=== PATIENT | female | born 1930 | race Caucasian/White ===

== ENCOUNTER → 2018-02-04 | Outpatient (CLI) | payer MEDICARE, OTHER ==
[~2018-02-04] MED LIST: REGADENOSON 0.4 MG/5 ML SYRINGE ONE
== END | disposition home or self-care (01) ==
LOC: CVU 07:13
PROVIDERS: ATTEND Internal Medicine Cardiovascular Disease
DX: I08.0 Rheumatic disorders of both mitral and aortic valves (principal); I10 Essential (primary) hypertension
CPT/HCPCS: 78452; 93017; 93306; A9502; J2785

== ENCOUNTER → 2018-02-13 | Outpatient (CLI) | payer MEDICARE, OTHER ==
[2018-02-13 15:50] LABS: ANION GAP 9 mmol/L (5-15); CALCIUM 9.1 mg/dL (8.5-10.1); CHLORIDE 107 mmol/L (98-107); CREATININE 0.89 mg/dL (0.55-1.02)
== END | disposition home or self-care (01) ==
LOC: LAB 14:54
PROVIDERS: ATTEND Internal Medicine Cardiovascular Disease
DX: E78.1 Pure hyperglyceridemia (principal)
CPT/HCPCS: 36415; 80048

== ENCOUNTER → 2020-07-20 | Outpatient (CLI) | payer MEDICARE, OTHER | END | disposition home or self-care (01) | LOC: CFH 07:33 | PROVIDERS: ATTEND Internal Medicine Cardiovascular Disease | DX: I08.3 Combined rheumatic disorders of mitral, aortic and tricuspid valves (principal); I10 Essential (primary) hypertension; E78.5 Hyperlipidemia, unspecified; I25.2 Old myocardial infarction; I25.10 Atherosclerotic heart disease of native coronary artery without angina pectoris; Z79.01 Long term (current) use of anticoagulants | CPT/HCPCS: 93306 ==

== ENCOUNTER → 2020-07-21 | Outpatient (CLI) | payer MEDICARE, OTHER | END | disposition home or self-care (01) | LOC: RAD 09:22 | PROVIDERS: ATTEND Internal Medicine Cardiovascular Disease | DX: E04.2 Nontoxic multinodular goiter (principal); I25.10 Atherosclerotic heart disease of native coronary artery without angina pectoris; R93.1 Abnormal findings on diagnostic imaging of heart and coronary circulation | CPT/HCPCS: 71250; 76536 ==

== ENCOUNTER → 2020-12-07 | Outpatient (CLI) | payer MEDICARE, OTHER | END | disposition home or self-care (01) | LOC: CFH 08:30 | PROVIDERS: ATTEND Internal Medicine Cardiovascular Disease | DX: I25.89 Other forms of chronic ischemic heart disease (principal); I25.10 Atherosclerotic heart disease of native coronary artery without angina pectoris; I10 Essential (primary) hypertension | CPT/HCPCS: 78452; 93017; A9502; J2785 ==

== ENCOUNTER 2020-12-27 05:57 | Observation (INO) | payer MEDICARE, OTHER ==
[~2020-12-27] VITALS: Ht 162.6 cm; Wt 83.5 kg
[2020-12-27] MEDS ORDERED: methylPREDNISolone SOD SUCC 125 MG/2 ML IVPush ONE (07:00)
[2020-12-27] MEDS ORDERED: DIPHENHYDRAMINE 50 MG/ML, 1ML IVPush ONE (07:00)
[2020-12-27] MEDS ORDERED: LOSA50TA14 PO (07:01)
[2020-12-27] MEDS ORDERED: ALIR75PE SC (07:01)
[2020-12-27] MEDS ORDERED: METO-95 PO (07:01)
[2020-12-27] MEDS ORDERED: LEVO50TA5 PO (07:01)
[2020-12-27] MEDS ORDERED: SULF1TAB23 PO (07:01)
[2020-12-27] MEDS ORDERED: APIX2.5T PO (07:01)
[2020-12-27] MEDS ORDERED: SPIR25TA5 PO (07:01)
[2020-12-27] MEDS ORDERED: ACET-1600 PO (07:05)
[2020-12-27] MEDS ORDERED: CHOL378P PO (07:05)
[2020-12-27] MEDS ORDERED: ASCO100018 PO (07:05)
[2020-12-27 07:08] VITALS: BP 155/81
[2020-12-27] MEDS ORDERED: methylPREDNISolone SOD SUCC 125 MG/2 ML ONE (07:08)
[2020-12-27] MEDS ORDERED: DIPHENHYDRAMINE 50 MG/ML, 1ML ONE (07:08)
[2020-12-27 07:15] LABS: ANION GAP 8 mmol/L (5-15); CALCIUM 9.8 mg/dL (8.5-10.1); CHLORIDE 109 mmol/L (98-107); CREATININE 0.95 mg/dL (0.55-1.02)
[2020-12-27 07:53] LABS: BASOPHILS % (AUTO) 1 % (0-1); EOSINOPHILS % (AUTO) 2 % (1-7); LYMPHOCYTES % (AUTO) 20 % (22-44); MEAN CORPUSCULAR HEMOGLOBIN 34.4 pg (27.0-34.8); MEAN CORPUSCULAR HGB CONC 33.9 g/dL (32.4-35.8); MEAN PLATELET VOLUME 8.7 fL (7.4-10.4); MONOCYTES % (AUTO) 10 % (2-9); NEUTROPHILS % (AUTO) 67 % (42-75); PLATELET COUNT 258 x10^3/uL (130-400); RED BLOOD COUNT 4.08 x10^6/uL (3.82-5.3); RED CELL DISTRIBUTION WIDTH 13.1 % (9.6-15.2)
[2020-12-27 07:54] LABS: MD NO
[2020-12-27] MEDS ORDERED: FENTANYL PF 100 MCG/2ML ONE (08:38)
[2020-12-27] MEDS ORDERED: MIDAZOLAM 1 MG/ML, 5ML ONE (08:38)
[2020-12-27] MEDS ORDERED: LIDOCAINE 2%, 20ML ONE (08:38)
[2020-12-27] MEDS ORDERED: SODIUM CHLORIDE 0.9% 1,000 ML IV SCH (11:00)
[2020-12-27] MEDS ORDERED: ACETAMINOPHEN 325 MG TABLET ONE (12:41)
[2020-12-27 14:09] VITALS: BP 144/72
[2020-12-27] MEDS ORDERED: DIPHENHYDRAMINE 25 MG CAPSULE PO PRN (16:30)
[2020-12-27] MEDS: ACETAMINOPHEN 325 MG TABLET PO PRN (19:39)
[2020-12-27 20:08] VITALS: BP 142/77
[2020-12-27 23:50] VITALS: BP 145/84
[2020-12-28] MEDS: ACETAMINOPHEN 325 MG TABLET PO PRN (06:28)
[2020-12-28 07:50] VITALS: BP 149/78
== END 2020-12-28 10:00 | disposition home or self-care (01) ==
LOC: CACL 05:57 → 5SO 13:55 → ORIP 14:57 → CACL 16:22 → 5SO 17:29 → DCLOUNGE 12-28 09:56
PROVIDERS: ADMIT Internal Medicine Cardiovascular Disease; ATTEND Internal Medicine Cardiovascular Disease
DX: I25.10 Atherosclerotic heart disease of native coronary artery without angina pectoris (principal); I34.0 Nonrheumatic mitral (valve) insufficiency; I82.409 Acute embolism and thrombosis of unspecified deep veins of unspecified lower extremity; R93.1 Abnormal findings on diagnostic imaging of heart and coronary circulation; I10 Essential (primary) hypertension; E78.5 Hyperlipidemia, unspecified; R26.89 Other abnormalities of gait and mobility; R42 Dizziness and giddiness; E87.1 Hypo-osmolality and hyponatremia; R73.01 Impaired fasting glucose; E03.9 Hypothyroidism, unspecified; I25.2 Old myocardial infarction; Z79.899 Other long term (current) drug therapy; Z79.01 Long term (current) use of anticoagulants; Z86.718 Personal history of other venous thrombosis and embolism
CPT/HCPCS: 36415; 80048; 85025; 93458; 96374; 96375; 99156; 99157; C1760; C1769; C1894; G0378; J1200; J2250; J2930; J3010; J3490; J7030; Q9967